=== PATIENT | male | born 1950 | race Caucasian/White ===

== ENCOUNTER 2022-04-30 16:27 | Outpatient (REF) | payer OTHER, SELFPAY ==
[2022-04-30 15:44] LABS: TSH 0.84 uIU/mL (0.36-3.74)
== END 2022-04-30 16:28 | disposition home or self-care (01) ==
LOC: NCHCN 16:27
PROVIDERS: Visit Provider Physician Assistant
DX: E03.9 Hypothyroidism, unspecified (principal); R97.20 Elevated prostate specific antigen [PSA]
CPT/HCPCS: 84154; 84443

== ENCOUNTER 2024-09-28 12:56 | Outpatient (REF) | payer BC, SELFPAY ==
[2024-09-28 16:28] LABS: Hemoglobin A1C 5.7 % (<5.7)
[2024-09-28 18:17] LABS: ALT 38 U/L (16-63); AST 19 U/L (15-37); Albumin 4.1 g/dL (3.4-5.0); Alkaline Phosphatase 70 U/L (46-116); Anion Gap 14.1 mmol/L (3-11); BUN 21 mg/dL (7-18); Bilirubin, Total 0.4 mg/dL (0.2-1.0); CO2 22.9 mmol/L (21.0-32.0); CREATININE 1.2 mg/dL (0.70-1.30); Calcium 9.7 mg/dL (8.5-10.1); Chloride 105 mmol/L (98-107); Estimated GFR 64.25 (mL/min/1.73m2); Glucose 111 mg/dL (74-106); Potassium 4.8 mmol/L (3.5-5.1); Sodium 142 mmol/L (136-145); TSH 1.59 uIU/mL (0.36-3.74); Total Protein 7.3 g/dL (6.4-8.2)
[2024-09-28 19:37] LABS: Calculated LDL 82 mg/dL (<100); Cholesterol 173 mg/dL (<200); HDL Cholesterol 64 mg/dL (>or=40); Triglyceride 136 mg/dL (<150)
== END 2024-09-28 12:57 | disposition home or self-care (01) ==
LOC: NCHCN 12:56
PROVIDERS: Visit Provider Physician Assistant
DX: E78.5 Hyperlipidemia, unspecified (principal); R73.9 Hyperglycemia, unspecified; E03.9 Hypothyroidism, unspecified
CPT/HCPCS: 80053; 80061; 83036; 84443